=== PATIENT | female | born 1980 | race Caucasian/White ===

== ENCOUNTER 2018-03-05 04:57 | Inpatient (IN) | payer OTHER ==
[2018-03-03 19:00] VITALS: BMI 24.8
[2018-03-05] MEDS ORDERED: THROMBIN (BOVINE) 20,000 UNIT VIAL TP ONE (08:33)
[2018-03-05] MEDS ORDERED: LIDOCAINE 1%/EPI 1:100000 (20 ML MULTI DOSE VIAL) ONE (08:33)
[2018-03-05] MEDS ORDERED: GENTAMICIN SO4 80 MG/2 ML VIAL ONE (08:33)
[2018-03-05] MEDS ORDERED: BUPIVACAINE HCL/PF 0.5% (5MG/ML) 10 ML VIAL ONE (08:33)
[2018-03-05] MEDS ORDERED: VANCOMYCIN 1,000 MG VIAL (RESTRICTED TO ID ONLY) ONE ×3 (08:35→11:24)
[2018-03-05] MEDS ORDERED: fentaNYL CITRATE 250 MCG/5 ML VIAL ONE (09:44)
[2018-03-05] MEDS ORDERED: PROPOFOL 20 ML ONE ×4 (09:44)
[2018-03-05] MEDS ORDERED: SUCCINYLCHOLINE CHLORIDE 200 MG/10 ML VIAL ONE (09:44)
[2018-03-05] MEDS ORDERED: MIDAZOLAM HCL 2 MG/2 ML SINGLE DOSE VIAL ONE (09:45)
[2018-03-05] MEDS ORDERED: ROCURONIUM BROMIDE 50 MG/5 ML VIAL ONE (09:45)
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
[2018-03-05] MEDS ORDERED: ONDANSETRON 4 MG/2 ML VIAL ONE ×2 (10:49→11:24)
[2018-03-05] MEDS ORDERED: ceFAZolin SODIUM 1 GM VIAL ONE ×3 (10:49→20:10)
[2018-03-05] MEDS ORDERED: DEXAMETHASONE SOD PHOSPHATE 4 MG/1 ML VIAL ONE ×2 (10:49→11:24)
[2018-03-05] MEDS ORDERED: ceFAZolin SODIUM 1 GM VIAL IVPB ONE (10:55)
[2018-03-05] MEDS ORDERED: VANCOMYCIN 1,000 MG VIAL (RESTRICTED TO ID ONLY) IVPB ONE (11:05)
[2018-03-05] MEDS ORDERED: KETOROLAC TROMETHAMINE 30 MG/1 ML VIAL ONE (11:24)
[2018-03-05] MEDS ORDERED: NEOSTIGMINE METHYLSULFATE 0.5 MG/ML - 10 ML MDV ONE (11:25)
[2018-03-05] MEDS ORDERED: GLYCOPYRROLATE 0.2 MG/1 ML VIAL ONE (11:25)
[2018-03-05] MEDS ORDERED: ONDANSETRON 4 MG/2 ML VIAL IVPUSH PRN ×2 (11:52→14:00)
[2018-03-05] MEDS ORDERED: PROMETHAZINE HCL 25 MG/1 ML VIAL IVPB PRN (11:52)
[2018-03-05] MEDS ORDERED: LACTATED RINGERS SOLUTION 1,000 ML IV SCH ×2 (12:00→13:25)
[2018-03-05] MEDS ORDERED: oxyCODONE HCL 5 MG TABLET PO PRN (12:10)
[2018-03-05] MEDS ORDERED: DOCUSATE SODIUM 100 MG CAPSULE (FP) PO PRN (12:15)
--- NOTE | 2018-03-05 12:26 | OP ---
Operative Note - Note: Operative Date: 03/05/18 Pre-Operative Diagnosis: lumbar 2 fracture, painful/suboptimal hardware position Operation: wound exploration, removal of hardware, bone graft placement Surgeon: Jose Francisco Riley Roving Frame Tender: Janina Galeas Anesthesiologist/AIR PUMPER: Trip Chester Anesthesia: General Specimens Removed: hardware Estimated Blood Loss (mls): 20 Drains, Volume Out (mls): 100 (lópez) Fluid Volume Replaced (mls): 400 Operative Report Dictated: Yes
--- NOTE | 2018-03-05 12:27 | SURG ---
Surgery Genetic Engineer Note Genetic Engineer: Janina Galeas PA-C Date of Service: 03/05/18 Diagnosis: lumbar 2 fracture, painful/suboptimal hardware position Procedure: wound exploration, removal of hardware, bone graft placement I was present for the entirety of the operative procedure. For further detail, please refer to operative report. Visit type - Case Type Case Type: Scheduled Admission - Emergency Emergency Visit: No - New patient This patient is new to me today: Yes Date on this admission: 03/05/18
[2018-03-05] MEDS ORDERED: oxyCODONE HCL 5 MG TABLET ONE (14:53)
[2018-03-05] MEDS: LACTATED RINGERS SOLUTION 1,000 ML IV SCH (15:00)
[2018-03-05] MEDS ORDERED: morphine SULFATE 4 MG/ML VIAL ONE (19:18)
[2018-03-05] MEDS: morphine CARPU-JECT 4 MG/1 ML DISP.SYRIN IVPUSH PRN (19:20)
[2018-03-05] MEDS ORDERED: DEXTROSE 5%-WATER - 50 ML IVPB ONE (20:10)
[2018-03-05] MEDS: CEFAZOLIN 1 GM in DEXTROSE 5%-WATER - 50 ML IVPB SCH (20:14)
[2018-03-05] MEDS: oxyCODONE HCL 5 MG TABLET PO PRN (20:30)
[2018-03-05] MEDS: DOCUSATE SODIUM 100 MG CAPSULE (FP) PO SCH (21:02)
[2018-03-05] MEDS: HEPARIN NA (PORCINE) 5,000 UNITS/ML 1ML VIAL SQ SCH (21:02)
[2018-03-06] MEDS: morphine CARPU-JECT 4 MG/1 ML DISP.SYRIN IVPUSH PRN (00:18)
[2018-03-06] MEDS ORDERED: DEXTROSE 5%-WATER - 50 ML IVPB ONE (00:21)
[2018-03-06] MEDS ORDERED: ceFAZolin SODIUM 1 GM VIAL ONE (00:21)
[2018-03-06] MEDS: oxyCODONE HCL 5 MG TABLET PO PRN ×3 (01:10→08:01)
[2018-03-06] MEDS: CEFAZOLIN 1 GM in DEXTROSE 5%-WATER - 50 ML IVPB SCH (01:21)
[2018-03-06] MEDS ORDERED: morphine SULFATE 4 MG/ML VIAL IVPUSH ONE (01:45)
[2018-03-06] MEDS: morphine SULFATE 4 MG/ML VIAL IVPUSH PRN ×3 (03:49→14:52)
[2018-03-06] MEDS: HEPARIN NA (PORCINE) 5,000 UNITS/ML 1ML VIAL SQ SCH ×3 (05:57→21:09)
[2018-03-06] MEDS: LACTATED RINGERS SOLUTION 1,000 ML IV SCH ×2 (06:58→14:45)
[2018-03-06] MEDS ORDERED: diazePAM 5 MG TABLET PO PRN (07:48)
[2018-03-06 07:49] LABS: HEMATOCRIT 26.3 % (32.4-45.2); HEMOGLOBIN 9.1 GM/dL (10.7-15.3); MCH 31.6 pg (25.7-33.7); MCHC 34.8 g/dl (32.0-36.0); MEAN PLT VOLUME 7.6 fl (7.5-11.1); PLATELET COUNT 386 K/MM3 (134-434); RBC 2.89 M/mm3 (3.60-5.2); RDW 14.3 % (11.6-15.6); WHITE BLOOD COUNT 8.5 K/mm3 (4.0-10.0)
[2018-03-06] MEDS: ACETAMINOPHEN 325 MG TABLET (FP) PO PRN ×3 (07:50→18:11)
[2018-03-06] MEDS ORDERED: oxyCODONE HCL 5 MG TABLET PO PRN ×3 (07:50→13:40)
[2018-03-06 08:17] LABS: ANION GAP 8 (8-16); BLOOD UREA NITROGEN 8 mg/dL (7-18); CALCIUM 8.5 mg/dL (8.5-10.1); CHLORIDE 102 mmol/L (98-107); CO2 27 mmol/L (21-32); CREATININE 0.6 mg/dL (0.55-1.02); GLUCOSE,RANDOM 89 mg/dL (74-106); POTASSIUM 3.8 mmol/L (3.5-5.1); SODIUM 137 mmol/L (136-145)
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
[2018-03-06] MEDS: DOCUSATE SODIUM 100 MG CAPSULE (FP) PO SCH ×2 (09:12→21:10)
[2018-03-06] MEDS: SERTRALINE HCL 50 MG TABLET (FP) PO SCH (09:12)
[2018-03-06] MEDS: FOLIC ACID 1 MG TABLET (FP) PO SCH (09:12)
[2018-03-06] MEDS ORDERED: ETANERCEPT 25 MG SQ SCH (10:00)
[2018-03-06] MEDS ORDERED: METHOTREXATE 2.5 MG TABLET PO SCH (10:00)
[2018-03-06] MEDS ORDERED: POLYETHYLENE GLYCOL 3350 119 GM BTL PO SCH (10:00)
[2018-03-06] MEDS ORDERED: ISONIAZID PO SCH (10:00)
--- NOTE | 2018-03-06 15:09 | PN ---
Progress Note (short form) - Note Progress Note: POD#1 Pt seen earlier this am and states that she is having incisional pain this am. Checked on the pt later in the day and she was feeling better. OOB and ambulating, using incentive spirometer. Vital Signs Period Temp Pulse Resp BP Sys/Matta Pulse Ox Last 24 Hr 97.7 F-102.6 F 68-88 12-24 97-121/57-88 98-100 GEN: appears uncomfortable CV: RRR Lungs: CTA b/l Neuro: 03/14 dorsi/plantar/EHL b/l. Straight leg rasie 03/14 b/l Back: incision c/d/i, changed today and more dermabond placed on inferior aspect. CBC, BMP 03/06/18 07:00 03/06/18 07:07 A/P: 37 yo female s/p wound exploration, removal of hardware, bone graft placement Pt medicated with morphine/valium/tylenol to help relieve her pain symptoms Pt seen with Dr. Abdi, will cont with oob/ambulate with assistance and PT TLSO brace when oob Since this am, the patient developed a fever reinforced incentive spirometer use/ambualte
[2018-03-06] MEDS: POLYETHYLENE GLYCOL 3350 119 GM BTL PO SCH (21:10)
[2018-03-07] MEDS: ACETAMINOPHEN 325 MG TABLET (FP) PO PRN ×2 (01:47→12:08)
[2018-03-07] MEDS: LACTATED RINGERS SOLUTION 1,000 ML IV SCH ×2 (02:00→12:00)
[2018-03-07 05:06] LABS: URINE APPEARANCE CLEAR; URINE COLOR COLORLESS; URINE GLUCOSE (UA) NEGATIVE (NEGATIVE)
[2018-03-07 05:07] LABS: URINE BILIRUBIN NEGATIVE (<2.0 mg/dL); URINE KETONE NEGATIVE (NEGATIVE); URINE LEUK ESTERASE NEGATIVE (NEGATIVE); URINE NITRITE NEGATIVE (NEGATIVE); URINE PROTEIN NEGATIVE (NEGATIVE); URINE UROBILINOGEN NORMAL mg/dL (0.2-1.0)
[2018-03-07] MEDS: HEPARIN NA (PORCINE) 5,000 UNITS/ML 1ML VIAL SQ SCH (05:37)
[2018-03-07 07:39] LABS: BASO % 0.4 % (0-2.0); EOS % 2.1 % (0-4.5); HEMATOCRIT 30.2 % (32.4-45.2); HEMOGLOBIN 10.4 GM/dL (10.7-15.3); LYMPH % 26.5 % (8-40); MCH 31.4 pg (25.7-33.7); MCHC 34.5 g/dl (32.0-36.0); MEAN CELL VOLUME 91.1 fl (80-96); MEAN PLT VOLUME 8.2 fl (7.5-11.1); MONO % 9.6 % (3.8-10.2); NEUT % 61.4 % (42.8-82.8); PLATELET COUNT 431 K/MM3 (134-434); RBC 3.31 M/mm3 (3.60-5.2); RDW 14.6 % (11.6-15.6); WHITE BLOOD COUNT 9.1 K/mm3 (4.0-10.0)
[2018-03-07 08:57] LABS: CHLORIDE 102 mmol/L (98-107); POTASSIUM 4.1 mmol/L (3.5-5.1); SODIUM 136 mmol/L (136-145)
[2018-03-07 09:34] LABS: ALBUMIN 3.4 g/dl (3.4-5.0); ALK PHOS 169 U/L (45-117); ANION GAP 10 (8-16); BILIRUBIN,TOTAL 0.4 mg/dL (0.2-1.0); BLOOD UREA NITROGEN 8 mg/dL (7-18); CALCIUM 8.9 mg/dL (8.5-10.1); CO2 24 mmol/L (21-32); CREATININE 0.6 mg/dL (0.55-1.02); GLUCOSE,RANDOM 83 mg/dL (74-106); SGOT/AST 38 U/L (15-37); SGPT/ALT 43 U/L (12-78); TOT PROT 7.3 g/dl (6.4-8.2)
--- NOTE | 2018-03-07 09:40 | PN ---
Progress Note, Physician Chief Complaint: Lumbar spine pain History of Present Illness: Operative Date: 03/05/18 Pre-Operative Diagnosis: lumbar 2 fracture, painful/suboptimal hardware position Operation: wound exploration, removal of hardware, bone graft placement Surgeon: Jose Francisco Riley Film Loader: Janina Galeas Febrile overnight cbc unremarkable Micro pending mild pain at the surgical site self ambulatory - Current Medication List Current Medications: Active Medications Acetaminophen (Tylenol -) 650 mg PO Q4H PRN PRN Reason: PAIN LEVEL 1-5 Last Admin: 03/07/18 01:47 Dose: 650 mg Diazepam (Valium -) 5 mg PO Q8H PRN PRN Reason: WITHDRAWAL(CONT SUBST) Last Admin: 03/06/18 08:01 Dose: 5 mg Docusate Sodium (Colace -) 100 mg PO Q12H [facility] Last Admin: 03/06/18 21:10 Dose: 100 mg Folic Acid (Folic Acid -) 1 mg PO DAILY [facility] Last Admin: 03/06/18 09:12 Dose: 1 mg Heparin Sodium (Porcine) (Heparin -) 5,000 unit SQ TID [facility] Last Admin: 03/07/18 05:37 Dose: 5,000 unit Lactated Ringer's (Lactated Ringers Solution) 1,000 mls @ 75 mls/hr IV ASDIR [facility] Last Admin: 03/07/18 02:00 Dose: 75 mls/hr Methotrexate (Mexate -) 1 mg PO WEEKLY [facility] Morphine Sulfate (Morphine Sulfate) 4 mg IVPUSH Q4H PRN PRN Reason: PAIN LEVEL 6-10 Last Admin: 03/06/18 14:52 Dose: 4 mg Non-Formulary Medication (Etanercept [Enbrel]) 25 mg SQ Q7D [facility] Last Admin: 03/06/18 09:14 Dose: 25 mg Non-Formulary Medication (Isoniazid [Inh -]) 1 tab PO DAILY [facility] Ondansetron HCl (Zofran Injection) 4 mg IVPUSH Q6H PRN PRN Reason: NAUSEA Oxycodone HCl (Roxicodone -) 10 mg PO Q4H PRN PRN Reason: PAIN LEVEL 6-10 Last Admin: 03/06/18 21:10 Dose: 10 mg Oxycodone HCl (Roxicodone -) 5 mg PO Q4H PRN PRN Reason: PAIN LEVEL 4 - 6 Polyethylene Glycol (Miralax (For Daily Use) -) 17 gm PO BID [facility] Last Admin: 03/06/18 21:10 Dose: 17 gm Sertraline HCl (Zoloft -) 50 mg PO DAILY [facility] Last Admin: 03/06/18 09:12 Dose: 50 mg - Objective Vital Signs: Vital Signs Temperature 99.0 F 03/07/18 05:42 Pulse Rate 86 03/07/18 05:42 Respiratory Rate 18 03/07/18 05:42 Blood Pressure 100/55 03/07/18 05:42 O2 Sat by Pulse Oximetry (%) 99 03/06/18 21:00 Constitutional: Yes: Well Nourished, No Distress, Calm Cardiovascular: Yes: Regular Rate and Rhythm Respiratory: Yes: Regular Gastrointestinal: Yes: Normal Bowel Sounds, Soft Musculoskeletal: Yes: Back Pain Extremities: Yes: WNL Edema: No Peripheral Pulses WNL: Yes Neurological: Yes: Alert, Oriented Psychiatric: Yes: Alert, Oriented Labs: CBC, BMP 03/07/18 07:05 03/07/18 07:05 Problem List - Problems (1) Status post lumbar discectomy Assessment/Plan: POD#2 -Neurosurgery -pain management- hasn't used morphine since yesterday AM, would d/c and adjust dosing on other pain meds -Physical therapy Code(s): Z98.890 - OTHER SPECIFIED POSTPROCEDURAL STATES (2) Constipation Assessment/Plan: Colace and miralax -If unable to go, would order enema Code(s): K59.00 - CONSTIPATION, UNSPECIFIED (3) Fever Assessment/Plan: -CBC unremarkable -micro pending -CXR today -acetaminophen for fever over 100.0 F -ID consult Code(s): R50.9 - FEVER, UNSPECIFIED Assessment/Plan see problem list
[2018-03-07] MEDS ORDERED: oxyCODONE HCL 5 MG TABLET PO PRN (09:48)
--- NOTE | 2018-03-07 11:50 | PN ---
Progress Note (short form) - Note Progress Note: ID Consult dictated POD #2 elective removal of lumbar spinal hardware Fever RA on Enbrel/ MTX Await c/s OOB Incentive spirometry Observe off antibiotics
[2018-03-07] MEDS: DOCUSATE SODIUM 100 MG CAPSULE (FP) PO SCH (11:59)
[2018-03-07] MEDS: SERTRALINE HCL 50 MG TABLET (FP) PO SCH (11:59)
[2018-03-07] MEDS: POLYETHYLENE GLYCOL 3350 119 GM BTL PO SCH (12:00)
[2018-03-07] MEDS: FOLIC ACID 1 MG TABLET (FP) PO SCH (12:00)
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
[2018-03-07 13:35] VITALS: BP 99/54; PULSE 72; TEMP 98.2
[2018-03-08 08:07] LABS: SERUM IRON SATURATION 5 % (15-55); TOTAL IRON BINDING CAPACITY 360 ug/dL (250-450); UIBC 342 ug/dL (131-425)
== END 2018-03-07 17:54 | disposition home or self-care (01) | DRG 905 ==
LOC: JSAMEDAYSX 04:57 → EDSTATUS 12:00 → J8W 17:40
PROVIDERS: ADMIT Family Medicine; ATTEND Family Medicine
PROC: 0JX70ZB Transfer Back Subcutaneous Tissue and Fascia with Skin and Subcutaneous Tissue, Open Approach (ICD-10-PCS; 2018-03-05)
PROC: 0QU00JZ Supplement Lumbar Vertebra with Synthetic Substitute, Open Approach (ICD-10-PCS; 2018-03-05)
PROC: 0SG10K1 Fusion of 2 or more Lumbar Vertebral Joints with Nonautologous Tissue Substitute, Posterior Approach, Posterior Column, Open Approach (ICD-10-PCS; 2018-03-05)
PROC: 0SP20JZ Removal of Synthetic Substitute from Lumbar Vertebral Disc, Open Approach (ICD-10-PCS; principal; 2018-03-05 10:00)
DX: T85.618A Breakdown (mechanical) of other specified internal prosthetic devices, implants and grafts, initial encounter (principal); Y83.9 Surgical procedure, unspecified as the cause of abnormal reaction of the patient, or of later complication, without mention of misadventure at the time of the procedure; K59.00 Constipation, unspecified; R50.9 Fever, unspecified; F17.210 Nicotine dependence, cigarettes, uncomplicated; M06.9 Rheumatoid arthritis, unspecified
CPT/HCPCS: 36415; 71045-TC-FY; 76000-TC-FY; 80048; 80053; 81003; 82607; 82728; 83540; 83550; 85025; 85027; 86850; 86900; 86901; 87040; 87086; 94760; 97116-GP; 97161-GP; J1644

== ENCOUNTER 2021-12-05 12:59 | Emergency (ER) | payer OTHER ==
[2021-12-05 13:13] VITALS: BP 163/91; PULSE 81; TEMP 98; BMI 30.9
[2021-12-05] MEDS ORDERED: KETOROLAC TROMETHAMINE 60 MG/2 ML VIAL IM ONE (14:47)
[2021-12-05] MEDS ORDERED: KETOROLAC TROMETHAMINE 60 MG/2 ML VIAL ONE (14:54)
== END 2021-12-05 15:13 | disposition home or self-care (01) ==
LOC: JER 12:59
PROC: 3E0233Z Introduction of Anti-inflammatory into Muscle, Percutaneous Approach (ICD-10-PCS; principal; 2021-12-05)
DX: M79.10 Myalgia, unspecified site (principal)
CPT/HCPCS: 99285-25

== ENCOUNTER 2023-01-16 09:24 | Emergency (ER) | payer OTHER ==
[2023-01-16 09:29] VITALS: BP 137/78; PULSE 102; RESP 20; TEMP 98; BMI 34.7
[2023-01-16] MEDS ORDERED: SODIUM CHLORIDE 1,000 ML IV STA (10:28)
[2023-01-16] MEDS ORDERED: ACETAMINOPHEN 1000 MG/100 ML BAG IVPB ONE (10:28)
[2023-01-16] MEDS ORDERED: ONDANSETRON 4 MG/2 ML VIAL IVPUSH ONE (10:28)
[2023-01-16] MEDS ORDERED: ACETAMINOPHEN INJECTION 100 ML IVPB ONE (11:02)
[2023-01-16] MEDS ORDERED: ONDANSETRON 4 MG/2 ML VIAL ONE (11:02)
[2023-01-16 11:18] LABS: BASO % 0.6 % (0-2.0); EOS % 2.8 % (0-4.5); HEMATOCRIT 35.2 % (32.4-45.2); HEMOGLOBIN 11.8 GM/dL (10.7-15.3); LYMPH % 31.8 % (8-40); MCH 27.6 pg (25.7-33.7); MCHC 33.5 g/dl (32.0-36.0); MEAN CELL VOLUME 82.5 fl (80-96); MEAN PLT VOLUME 8.6 fl (7.5-11.1); MONO % 8.3 % (3.8-10.2); NEUT % 56.5 % (42.8-82.8); PLATELET COUNT 405 10^3/uL (134-434); RBC 4.26 M/mm3 (3.60-5.2); RDW 17.6 % (11.6-15.6); WHITE BLOOD COUNT 6.4 K/mm3 (4.0-10.0)
[2023-01-16 11:19] LABS: URINE APPEARANCE CLEAR; URINE BILIRUBIN NEGATIVE (NEGATIVE); URINE COLOR YELLOW; URINE GLUCOSE (UA) NEGATIVE (NEGATIVE); URINE KETONE NEGATIVE (NEGATIVE); URINE LEUK ESTERASE NEGATIVE (NEGATIVE); URINE NITRITE NEGATIVE (NEGATIVE); URINE PROTEIN NEGATIVE (NEGATIVE); URINE UROBILINOGEN 0.2 mg/dL (0.2-1.0)
[2023-01-16 11:48] LABS: ALBUMIN 3.8 g/dl (3.4-5.0); BLOOD UREA NITROGEN 8.9 mg/dL (7-18); CALCIUM 9.3 mg/dL (8.5-10.1)
[2023-01-16 11:51] LABS: CREATININE 0.8 mg/dL (0.55-1.3)
[2023-01-16 11:53] LABS: BILIRUBIN,TOTAL 0.4 mg/dL (0.2-1); TOT PROT 7.6 g/dl (6.4-8.2)
[2023-01-16 12:35] LABS: HCG,QUALITATIVE URINE Negative
== END 2023-01-16 14:02 | disposition home or self-care (01) ==
LOC: JERFT 09:24 → JER 09:24 → JERFT 14:02
PROC: 3E033NZ Introduction of Analgesics, Hypnotics, Sedatives into Peripheral Vein, Percutaneous Approach (ICD-10-PCS; principal; 2023-01-16)
PROC: 3E033GC Introduction of Other Therapeutic Substance into Peripheral Vein, Percutaneous Approach (ICD-10-PCS; 2023-01-16)
PROC: 3E0337Z Introduction of Electrolytic and Water Balance Substance into Peripheral Vein, Percutaneous Approach (ICD-10-PCS; 2023-01-16)
DX: R10.31 Right lower quadrant pain (principal)
CPT/HCPCS: 36415; 74177-TC; 80053; 81003; 83690; 84703; 85025; 87086; 99285-25

== ENCOUNTER 2023-04-29 04:55 | Emergency (ER) | payer OTHER ==
[2023-04-29 05:03] VITALS: BMI 31.1
[2023-04-29 05:31] LABS: ARTERIAL BLD GAS O2 SATURATION 95.9 % (95-98); ARTERIAL BLOOD GAS BASE EXCESS -4.1 mmol/L (-2-2); ARTERIAL BLOOD GAS PO2 78.3 mmHg (80-100); ARTERIAL BLOOD GAS pH 7.417 (7.350-7.450)
[2023-04-29 05:48] LABS: ALLENS TEST POSITIVE
[2023-04-29 05:55] LABS: INR 0.99 (0.83-1.09); PROTHROMBIN TIME (PATIENT) 11.5 SEC (9.7-13.0)
[2023-04-29 05:58] LABS: ACTIVATED PTT 28.8 SECONDS (25.2-36.5); BASO % 0.7 % (0-2.0); EOS % 3.7 % (0-4.5); HEMATOCRIT 32.8 % (32.4-45.2); HEMOGLOBIN 11.1 GM/dL (10.7-15.3); LYMPH % 28.5 % (8-40); MCH 29.2 pg (25.7-33.7); MCHC 33.9 g/dl (32.0-36.0); MEAN PLT VOLUME 8.8 fl (7.5-11.1); NEUT % 58.1 % (42.8-82.8); PLATELET COUNT 294 10^3/uL (134-434); RBC 3.81 M/mm3 (3.60-5.2); RDW 15.5 % (11.6-15.6)
[2023-04-29 06:09] LABS: LACTIC ACID 2.1 mmol/L (0.4-2.0)
[2023-04-29 06:10] LABS: CHLORIDE 107 mmol/L (98-107); POTASSIUM 3.5 mmol/L (3.5-5.1); SODIUM 140 mmol/L (136-145)
[2023-04-29 06:12] LABS: CALCIUM 8.4 mg/dL (8.5-10.1); GLUCOSE,RANDOM 164 mg/dL (74-106)
[2023-04-29 06:13] LABS: ALBUMIN 3.3 g/dl (3.4-5.0); ANION GAP 9 MMOL/L (8-16); BLOOD UREA NITROGEN 7.4 mg/dL (7-18); CO2 25 mmol/L (21-32)
[2023-04-29 06:16] LABS: CREATININE 0.7 mg/dL (0.55-1.3); SGOT/AST 63 U/L (15-37); SGPT/ALT 40 U/L (13-61)
[2023-04-29 06:17] LABS: BILIRUBIN,TOTAL 0.2 mg/dL (0.2-1); TOT PROT 6.5 g/dl (6.4-8.2)
[2023-04-29 06:18] LABS: ALK PHOS 98 U/L (45-117)
[2023-04-29] MEDS ORDERED: SODIUM CHLORIDE 1,000 ML IV STA (06:25)
[2023-04-29 08:09] LABS: LACTIC ACID 2.6 mmol/L (0.4-2.0)
[2023-04-29 08:50] VITALS: TEMP 97.6
[2023-04-29 09:16] LABS: PH,URINE 6.5 (5.0-8.0); URINE APPEARANCE CLOUDY; URINE BILIRUBIN NEGATIVE (NEGATIVE); URINE COLOR YELLOW; URINE GLUCOSE (UA) NEGATIVE (NEGATIVE); URINE KETONE NEGATIVE (NEGATIVE); URINE LEUK ESTERASE NEGATIVE (NEGATIVE); URINE NITRITE NEGATIVE (NEGATIVE); URINE PROTEIN NEGATIVE (NEGATIVE)
[2023-04-29 09:27] LABS: EPI CELLS >36 /uL (0-25.1); HYALINE CASTS 6 /uL (0-3.1); URINE BACTERIA 3204 /uL (0-1359)
[2023-04-29 10:06] LABS: OPIATES, URI NEGATIVE (NEGATIVE); URINE BARBITURATES NEGATIVE (NEGATIVE)
[2023-04-29 10:07] LABS: METHADONE, UR NEGATIVE (NEGATIVE); PHENCYCLIDINE,URINE NEGATIVE (NEGATIVE); URINE AMPHETAMINES NEGATIVE (NEGATIVE)
[2023-04-29 10:21] LABS: COCAINE, UR POSITIVE (NEGATIVE); URINE BENZODIAZEPINES POSITIVE (NEGATIVE)
[2023-04-29 10:26] LABS: URINE RBC 30 /uL (0-23.9)
[2023-04-29 10:27] LABS: URINE WBC 186 /uL (0-25.8)
[2023-04-29 12:13] LABS: LACTIC ACID 2.5 mmol/L (0.4-2.0)
[2023-04-29 12:40] VITALS: BP 155/92; PULSE 85; RESP 20
== END 2023-04-29 12:41 | disposition home or self-care (01) ==
LOC: JER 04:55
PROC: 3E0337Z Introduction of Electrolytic and Water Balance Substance into Peripheral Vein, Percutaneous Approach (ICD-10-PCS; principal; 2023-04-29)
DX: R41.82 Altered mental status, unspecified (principal); R06.2 Wheezing; Z79.899 Other long term (current) drug therapy; Z20.822 Contact with and (suspected) exposure to COVID-19
CPT/HCPCS: 0241U-QW; 36415; 36600; 70450-TC; 71045-TC-FY; 80053; 80307; 81003; 82140; 82550; 82803; 83605; 84439; 84443; 84484; 84703; 85025; 85610; 85730; 87086; 93005; 93010; 99285-25; G0480